=== PATIENT | female | born 1945 | race Caucasian/White ===

== ENCOUNTER 2016-09-26 10:52 | Emergency (ER) | payer MEDICARE, BC ==
[2016-09-26] MEDS ORDERED: SODIUM CHLORIDE 0.9% 1,000 ML IV STA (12:31)
--- NOTE | 2016-09-26 12:40 | ED ---
GI Bleed HPI - General Chief complaint: GI Bleed Stated complaint: blood in stool Time Seen by Provider: 09/26/16 12:25 Source: patient Mode of arrival: ambulatory Limitations: no limitations - History of Present Illness Initial comments: Patient is a 70-year-old female on aspirin presenting with bright red blood per rectum. Patient states symptoms started last night with blood in the bowl. Patient denies blood in the stool. Patient denies lightheadedness. Patient states she has similar symptoms about a year ago for which she was diagnosed with internal hemorrhoids. Patient never followed up on colonoscopy at that time. Patient states this morning she had a bowel movement and wiped without blood. Patient states her bowel movements are usually every day to every other day. Patient uses a hemorrhoid suppository. Denies fever, chills, chest pain, shortness breath, nausea, vomiting, diarrhea, abdominal pain. - Related Data Home Medications Medication Instructions Recorded Confirmed Aspirin 81 mg PO DAILY 12/22/15 09/26/16 Cholecalciferol [Vitamin D3] 1,000 unit PO DAILY 12/22/15 09/26/16 Tolterodine Tartrate [Detrol LA] 4 mg PO DAILY 12/22/15 09/26/16 amLODIPine BESYLATE/BENAZEPRIL 1 cap PO DAILY 12/22/15 09/26/16 [Lotrel 5-20 mg Capsule] Atorvastatin (Unknown Dose) 1 tab PO HS 09/26/16 09/26/16 Ubidecarenone [Co Q-10] 200 mg PO DAILY 09/26/16 09/26/16 Vit C/E/Zn/Coppr/Lutein/Zeaxan 1 cap PO DAILY 09/26/16 09/26/16 [Preservision Areds 2 Softgel] Allergies Allergy/AdvReac Type Severity Reaction Status Date / Time Sulfa (Sulfonamide Allergy Unknown Verified 12/22/15 19:09 Antibiotics) Review of Systems ROS Statement: Those systems with pertinent positive or pertinent negative responses have been documented in the HPI. Constitutional: No fever and no chills. HENT: No congestion, no rhinorrhea and no sore throat. Eyes: No discharge and no redness. Respiratory: No cough and no shortness of breath. Cardiovascular: No chest pain and no palpitations. Gastrointestinal: No nausea, no vomiting, no abdominal pain and no diarrhea. + Rectal bleeding. Genitourinary: No dysuria and no hematuria. Musculoskeletal: No back pain and no arthralgias. Skin: No pallor and no rash. Neurological: No dizziness and No headaches. ROS Other: All systems not noted in ROS Statement are negative. Past Medical History Past Medical History: GERD/Reflux, Hypertension Additional Past Medical History / Comment(s): BLADDER PROBLEMS History of Any Multi-Drug Resistant Organisms: None Reported Past Surgical History: Cholecystectomy, Hysterectomy Past Psychological History: No Psychological Hx Reported Smoking Status: Never smoker Past Alcohol Use History: None Reported Past Drug Use History: None Reported General Exam - General Exam Comments Initial Comments: Constitutional: Patient appears well-developed and well-nourished. No distress. Head: Normocephalic and atraumatic. Eyes: Conjunctivae and EOM are normal. Right eye exhibits no discharge. Left eye exhibits no discharge. No scleral icterus. Neck: Normal range of motion. Neck supple. Cardiovascular: Tachycardic. No murmur heard. Pulmonary/Chest: Effort normal and breath sounds normal. No respiratory distress. No wheezes. Abdominal: Soft. No distension. There is no tenderness. There is no rebound and no guarding. Rectal exam completed with RN. No obvious bleeding. No melena. Palpable internal hemorrhoid. Musculoskeletal: Normal range of motion. No edema or tenderness. Neurological: Patient alert and oriented to person, place, and time. Skin: Skin is warm and dry. Not diaphoretic. Nursing notes and vitals reviewed. Limitations: no limitations Course Vital Signs 09/26/16 11:16 Temperature 97.5 F L Pulse Rate 108 H Respiratory 20 Rate Blood Pressure 161/70 O2 Sat by Pulse 99 Oximetry - Reevaluation(s) Reevaluation #1: 09/26/16 14:05 Patient updated on lab results. No further bleeding. Patient feels comfortable going home with outpatient GI follow-up. Medical Decision Making - Medical Decision Making Patient is a 70-year-old female with history of hemorrhoids presenting with blood in bowel movement. Hemoccult negative. Hemoglobin stable at 14.8. Patient without further bleeding. Prior to discharge, patient was resting comfortably in bed. Course of stay resolved and stable for outpatient follow- up. Denies pain. Discussed physical exam and diagnostic tests with patient. Questions answered and patient is agreeable to discharge with close follow up with Primary Care Physician. Instructed to return to Emergency Department if symptoms worsen. - Lab Data Result diagrams: 09/26/16 12:50 09/26/16 12:50 Lab Results 09/26/16 09/26/16 09/26/16 Range/Units 12:50 12:50 12:50 WBC 9.6 (3.8-10.6) k/uL RBC 4.99 (3.80-5.40) m/uL Hgb 14.8 (11.4-16.0) gm/dL Hct 45.6 (34.0-46.0) % MCV 91.5 (80.0-100.0) fL MCH 29.7 (25.0-35.0) pg MCHC 32.5 (31.0-37.0) g/dL RDW 13.1 (11.5-15.5) % Plt Count 167 (150-450) k/uL Neutrophils % 75 % Lymphocytes % 18 % Monocytes % 4 % Eosinophils % 1 % Basophils % 1 % Neutrophils # 7.2 (1.3-7.7) k/uL Lymphocytes # 1.7 (1.0-4.8) k/uL Monocytes # 0.4 (0-1.0) k/uL Eosinophils # 0.1 (0-0.7) k/uL Basophils # 0.1 (0-0.2) k/uL PT (9.0-12.0) sec INR (<1.1) APTT (22.0-30.0) sec Sodium 143 (137-145) mmol/L Potassium 4.4 (3.5-5.1) mmol/L Chloride 106 (98-107) mmol/L Carbon Dioxide 25 (22-30) mmol/L Anion Gap 12 mmol/L BUN 10 (7-17) mg/dL Creatinine 0.79 (0.52-1.04) mg/dL Est GFR (MDRD) Af Amer >60 (>60 ml/min/1.73 sqM) Est GFR (MDRD) Non-Af >60 (>60 ml/min/1.73 sqM) Glucose 109 H (74-99) mg/dL Calcium 9.7 (8.4-10.2) mg/dL Stool Occult Blood Negative (Negative) 09/26/16 Range/Units 12:50 WBC (3.8-10.6) k/uL RBC (3.80-5.40) m/uL Hgb (11.4-16.0) gm/dL Hct (34.0-46.0) % MCV (80.0-100.0) fL MCH (25.0-35.0) pg MCHC (31.0-37.0) g/dL RDW (11.5-15.5) % Plt Count (150-450) k/uL Neutrophils % % Lymphocytes % % Monocytes % % Eosinophils % % Basophils % % Neutrophils # (1.3-7.7) k/uL Lymphocytes # (1.0-4.8) k/uL Monocytes # (0-1.0) k/uL Eosinophils # (0-0.7) k/uL Basophils # (0-0.2) k/uL PT 10.2 (9.0-12.0) sec INR 1.0 (<1.1) APTT 24.2 (22.0-30.0) sec Sodium (137-145) mmol/L Potassium (3.5-5.1) mmol/L Chloride (98-107) mmol/L Carbon Dioxide (22-30) mmol/L Anion Gap mmol/L BUN (7-17) mg/dL Creatinine (0.52-1.04) mg/dL Est GFR (MDRD) Af Amer (>60 ml/min/1.73 sqM) Est GFR (MDRD) Non-Af (>60 ml/min/1.73 sqM) Glucose (74-99) mg/dL Calcium (8.4-10.2) mg/dL Stool Occult Blood (Negative) Disposition Clinical Impression: Hemorrhoids, History of rectal bleeding Disposition: HOME SELF-CARE Condition: Good Instructions: Rectal Bleeding (ED), Hemorrhoids (ED) Referrals: Adolfo Marshall MD [Primary Care Provider] - 1-2 days Merlin Alfredo MD [STAFF PHYSICIAN] - 1-2 days
[2016-09-26 13:13] LABS: Basophils # (A) 0.1 k/uL (0-0.2); Basophils % (A) 1 %; CH 29.8; CHCM 32.7; Eosinophils # (A) 0.1 k/uL (0-0.7); Eosinophils % (A) 1 %; HCT 45.6 % (34.0-46.0); HDW 2.45; HGB 14.8 gm/dL (11.4-16.0); Luc % (Auto) 2; Lymphocytes # (A) 1.7 k/uL (1.0-4.8); Lymphocytes % (A) 18 %; MCH 29.7 pg (25.0-35.0); MCHC 32.5 g/dL (31.0-37.0); MCV 91.5 fL (80.0-100.0); Mean Platelet Volume 9.2; Monocytes # (A) 0.4 k/uL (0-1.0); Monocytes % (A) 4 %; Neutrophils # (A) 7.2 k/uL (1.3-7.7); Neutrophils % (A) 75 %; RBC 4.99 m/uL (3.80-5.40); RDW 13.1 % (11.5-15.5); WBC 9.6 k/uL (3.8-10.6); WBC (Perox) 9.68
[2016-09-26 13:15] LABS: Anion Gap 12 mmol/L; Calcium 9.7 mg/dL (8.4-10.2); Carbon Dioxide 25 mmol/L (22-30); Chloride 106 mmol/L (98-107); Glucose 109 mg/dL (74-99); Non-African American GFR(MDRD) >60 (>60 ml/min/1.73 sqM); Sodium 143 mmol/L (137-145)
[2016-09-26 13:18] LABS: Blood Urea Nitrogen 10 mg/dL (7-17); Potassium 4.4 mmol/L (3.5-5.1)
[2016-09-26 13:23] LABS: Partial Thromboplastin Time 24.2 sec (22.0-30.0); Prothrombin Time 10.2 sec (9.0-12.0)
[2016-09-26 14:15] VITALS: BP 152/65; PULSE 88; RESP 18; TEMP 97.6
== END 2016-09-26 14:15 | disposition home or self-care (01) ==
LOC: EC 10:52
DX: K64.8 Other hemorrhoids (principal); R00.0 Tachycardia, unspecified; I10 Essential (primary) hypertension; Z90.49 Acquired absence of other specified parts of digestive tract; Z88.2 Allergy status to sulfonamides; Z79.82 Long term (current) use of aspirin; Z79.899 Other long term (current) drug therapy
CPT/HCPCS: 36415; 80048; 82272; 85025; 85610; 85730; 86850; 86900; 86901; 96360; 99284

== ENCOUNTER → 2017-09-11 | Outpatient (CLI) | payer MEDICARE, BC ==
--- NOTE | 2017-09-11 20:11 | US ---
EXAMINATION TYPE: US thyroid st tissue head/neck DATE OF EXAM: 09/11/2017 COMPARISON: 06/30/2016 CLINICAL HISTORY: 71-year-old female E04.1 THYROID NODULE. Follow up TECHNIQUE: Multiple sonographic images of the thyroid gland are obtained. FINDINGS: GLAND SIZE: Right Lobe: 4.2 x 0.9 x 1.5 cm Overall Parenchyma: heterogenous Left Lobe: 4.1 x 1.9 x 1.7 cm Overall Parenchyma: heterogeneous Isthmus Thickness: 0.4 cm NODULES RIGHT: # of nodules measured on right: 1 1. 0.2 cm nodule too small to characterize at the upper pole with well-defined margins; . This nodu le is wider than tall and shows no intranodular vascularity. Prior size: 0.2 cm LEFT: # of nodules measured on left: 2 1. 0.7 X 0.4 x 0.5 cm hypoechoic solid nodule at the upper pole with poorly defined margins; . Thi s nodule is wider than tall and shows intranodular vascularity. Prior size: 0.3 x 0.2 x 0.4 cm 2. 1.4 X 1.6 x 1.5 cm hypoechoic mixed, primarily solid nodule at the posterior midpole with well-de fined margins; . This nodule is wider than tall and shows intranodular vascularity. Prior size: 0.9 x 0.8 x 0.7 cm ISTHMUS: # of nodules measured in the isthmus: 0 Bilateral neck scanned, no evidence of lymphadenopathy. IMPRESSION: 2 nodules on the left, both of which have increased in size, the larger is mixed solid cystic, primar kenyetta solid now measuring 1.6 x 1.5 cm versus 9 x 8 mm, previously. FNA can be considered. While the second nodule in the upper pole has increased in size, it still remains subcentimeter (7 mm versus 4 mm, previously).
== END | disposition home or self-care (01) ==
LOC: RADUSWWP 15:31
PROVIDERS: ATTEND Otolaryngology
DX: E04.2 Nontoxic multinodular goiter (principal)
CPT/HCPCS: 76536

== ENCOUNTER → 2018-09-12 | Outpatient (CLI) | payer MEDICARE, BC ==
--- NOTE | 2018-09-13 09:11 | US ---
EXAMINATION TYPE: US thyroid st tissue head/neck DATE OF EXAM: 09/12/2018 COMPARISON: 09/11/2017 CLINICAL HISTORY: E04.1 Thyroid nodule. follow up exam GLAND SIZE: Right Lobe: 3.5 x 1.1 x 2.2 cm Overall Parenchyma: homogenous Left Lobe: 4.8 x 1.6 x 2.4 cm Overall Parenchyma: homogeneous Isthmus Thickness: 0.5 cm NODULES RIGHT: # of nodules measured on right: 0 LEFT: # of nodules measured on left: 1 1. 2.1 X 1.4 x 1.2 cm hypoechoic mixed nodule at the mid pole with well-defined margins. This nodu le is wider than tall and shows no intranodular vascularity. Prior size: 1.4 x 1.6 x 1.5 cm ISTHMUS: # of nodules measured in the isthmus: 0 Bilateral neck scanned, no evidence of lymphadenopathy. IMPRESSION: Interval enlargement of a partially cystic partially solid left thyroid nodule with peripheral vascul ar flow. Fine-needle aspiration should be considered at this time given the interval growth.
== END | disposition home or self-care (01) ==
LOC: RADUSWWP 16:00
PROVIDERS: ATTEND Otolaryngology
DX: E04.1 Nontoxic single thyroid nodule (principal)
CPT/HCPCS: 76536

== ENCOUNTER → 2019-04-15 | Outpatient (CLI) | payer MEDICARE, BC ==
--- NOTE | 2019-04-16 08:46 | US ---
EXAMINATION TYPE: US thyroid st tissue head/neck DATE OF EXAM: 04/15/2019 COMPARISON: Exams back to 07/30/2014 CLINICAL HISTORY: E04.1 thyroid nodule. GLAND SIZE: Right Lobe: 3.6 x 1.1 x 1.3 cm Overall Parenchyma: homogenous Left Lobe: 3.8 x 2.0 x 1.8 cm Overall Parenchyma: homogeneous Isthmus Thickness: 0.5 cm NODULES RIGHT: # of nodules measured on right: 0 LEFT: # of nodules measured on left: 1 1. 1.9 X 1.4 x 1.2 cm isoechoic solid nodule at the upper pole with well-defined margins. This nod ule is wider than tall and shows intranodular vascularity. Prior size: 2.1 x 1.4 x 1.2 cm on the exam of 09/12/2018. On the exam of 09/11/2017 this measured 1.4 x 1.6 x 1.5 cm. On the exam of 06/30/2016 this measured 0.7 x 0.6 x 0.9 cm and on the exam of 015 this measured 1.2 x 0.7 x 1.0 cm. Given differences in measurement technique there is still remai ns interval growth in comparison to multiple prior exams. ISTHMUS: # of nodules measured in the isthmus: 0 Bilateral neck scanned, no evidence of lymphadenopathy. IMPRESSION: Overall interval increase in size of the left thyroid nodule in comparison to exams dating back to . Fine-needle aspiration could again be considered if not previously performed.
== END | disposition home or self-care (01) ==
LOC: RADUSWWP 16:07
PROVIDERS: ATTEND Otolaryngology
DX: E04.1 Nontoxic single thyroid nodule (principal)
CPT/HCPCS: 76536

== ENCOUNTER → 2020-04-07 | Outpatient (CLI) | payer MEDICARE, BC | END | disposition home or self-care (01) | LOC: CPPFTMAIN 13:00 | PROVIDERS: ATTEND Family Medicine | DX: J98.8 Other specified respiratory disorders (principal) | CPT/HCPCS: 94060; 94726; 94729 ==

== ENCOUNTER → 2020-08-03 | Outpatient (CLI) | payer MEDICARE, BC ==
--- NOTE | 2020-08-03 13:00 | ECHOF ---
Referral Reason:R00.2 Palpitations; R06.00 Dyspnea on exertion MEASUREMENTS -------- HEIGHT: 162.6 cm WEIGHT: 65.3 kg BP: RVIDd: 3.9 cm (< 3.3) IVSd: 1.2 cm (0.6 - 1.1) LVIDd: 3.1 cm (3.9 - 5.3) LVPWd: 1.2 cm (0.6 - 1.1) IVSs: 1.5 cm LVIDs: 2.1 cm LVPWs: 1.5 cm LAESV Index (A-L): 26.83 ml/m Ao Diam: 2.7 cm (2.0 - 3.7) AV Cusp: 1.4 cm (1.5 - 2.6) MV EXCURSION: 12.685 mm (> 18.000) MV EF SLOPE: 95 mm/s (70 - 150) EPSS: 0.5 cm MV E Eliu: 0.94 m/s MV DecT: 114 ms MV A Eliu: 1.44 m/s MV E/A Ratio: 0.65 AV maxP.15 mmHg AV meanP.96 mmHg AR PHT: 364 ms RAP: 5.00 mmHg RVSP: 35.58 mmHg FINDINGS -------- Sinus rhythm. This was a technically adequate study. The left ventricular size is normal. There is mild concentric left ventricular hypertrophy. Overa ll left ventricular systolic function is normal with, an EF between 55 - 60 %. The diastolic fillin g pattern is normal for the age of the patient 9.93. The right ventricle is mild to moderately enlarged. Normal LA size by volume 22+/-6 ml/m2. The right atrial size is normal. Interatrial and interventricular septum intact. There is mild aortic valve sclerosis. There is mild aortic regurgitation. There is mild aortic st enosis present. Peak/mean gradient across the Aortic Valve is 31.15mmHg / 16.96mmHg. Mild mitral annular calcification present. There is trace to mild mitral regurgitation. The tricuspid valve appears structurally normal. Mild tricuspid regurgitation present. There is m ild pulmonary hypertension. The right ventricular systolic pressure, as measured by Doppler, is 35. 58mmHg. There is no pulmonic regurgitation present. The aortic root size is normal. Normal inferior vena cava with normal inspiratory collapse consistent with estimated right atrial pre ssure of 5 mmHg. There is no pericardial effusion. CONCLUSIONS -------- 1. There is mild concentric left ventricular hypertrophy. 2. Overall left ventricular systolic function is normal with, an EF between 55 - 60 %. 3. The right ventricle is mild to moderately enlarged. 4. Normal LA size by volume 22+/-6 ml/m2. 5. There is mild aortic regurgitation. 6. There is mild aortic stenosis present. 7. Peak/mean gradient across the Aortic Valve is 31.15mmHg / 16.96mmHg. 8. There is trace to mild mitral regurgitation. 9. Mild tricuspid regurgitation present. 10. There is mild pulmonary hypertension. REGIONAL GUIDE: Halima Wu RDCS
--- NOTE | 2020-08-07 18:36 | HM ---
HOLTER MONITOR REPORT The patient was monitored for 48 hours. CLINICAL INFORMATION: Baseline rhythm is sinus mechanism with normal conduction, the average rate 85 beats per minute, minimum 58, maximum 144 beats per minute. Ventricular ectopic activity was not present. Supraventricular ectopic activity was present in the form of occasional single PACs. No atrial fibrillation was noted. No diary was available. CONCLUSION: 1. Sinus mechanism baseline rhythm. 2. No ventricular ectopic activity. 3. Occasional supraventricular ectopic activity. 4. No diary was available. MMODL / IJN: [id number] /
== END | disposition home or self-care (01) ==
LOC: RADECHMAIN 11:41
PROVIDERS: ATTEND Family Medicine
DX: I08.2 Rheumatic disorders of both aortic and tricuspid valves (principal); R00.2 Palpitations; I27.20 Pulmonary hypertension, unspecified; I10 Essential (primary) hypertension; E78.2 Mixed hyperlipidemia
CPT/HCPCS: 93225; 93226; 93306

== ENCOUNTER → 2020-10-07 | Outpatient (CLI) | payer MEDICARE, BC ==
[2020-10-07 14:50] LABS: Basophils # (A) 0.06 X 10*3/uL (0.00-0.10); Basophils % (A) 0.6 %; Eosinophils # (A) 0.08 X 10*3/uL (0.04-0.35); Eosinophils % (A) 0.7 %; HCT 44.9 % (37.2-46.3); HGB 13.9 g/dL (12.0-15.0); Lymphocytes # (A) 2.59 X 10*3/uL (0.90-5.00); Lymphocytes % (A) 24.1 %; MCH 29.1 pg (27.0-32.0); MCV 93.9 fL (80.0-97.0); Mean Platelet Volume 12.8 fL (9.5-12.2); Monocytes # (A) 0.84 X 10*3/uL (0.20-1.00); Monocytes % (A) 7.8 %; Neutrophils # (A) 7.16 X 10*3/uL (1.80-7.70); Neutrophils % (A) 66.6 %; Platelet Count 197 X 10*3/uL (140-440); RBC 4.78 X 10*6/uL (4.10-5.20); RDW 13.2 % (11.5-14.5); WBC 10.75 X 10*3/uL (4.50-10.00)
[2020-10-07 16:53] LABS: African American GFR (CKD) 64.3 (60.0-200.0); Albumin 4.6 g/dL (3.80-4.90); Anion Gap 7.6 mmol/L (4.00-12.00); Calcium 10.1 mg/dL (8.7-10.3); Carbon Dioxide 28.4 mmol/L (21.6-31.8); Chol/HDL Ratio 3.27; LDL Cholesterol,Calculated 85.4 mg/dL (0.0-131.0); Non-African American GFR(CKD) 55.5 (60.0-200.0); Potassium 4.9 mmol/L (3.5-5.5); Total Protein 6.6 g/dL (6.2-8.2); VLDL Calculation 23.6 mg/dL (5.00-40.00)
[2020-10-07 16:54] LABS: Albumin/Globulin Ratio 2.3 (1.60-3.17); Total Bilirubin 0.4 mg/dL (0.2-1.2)
== END | disposition home or self-care (01) ==
LOC: LABWHC1 08:45
PROVIDERS: ATTEND Family Medicine
DX: Z13.31 Encounter for screening for depression (principal); I10 Essential (primary) hypertension; E78.2 Mixed hyperlipidemia; E55.9 Vitamin D deficiency, unspecified; N32.81 Overactive bladder; F17.200 Nicotine dependence, unspecified, uncomplicated; I65.29 Occlusion and stenosis of unspecified carotid artery; K21.9 Gastro-esophageal reflux disease without esophagitis; E04.2 Nontoxic multinodular goiter; R00.2 Palpitations; Z68.24 Body mass index [BMI] 24.0-24.9, adult
CPT/HCPCS: 36415; 80053; 80061; 82306; 84443; 85025

== ENCOUNTER 2020-10-25 11:35 | Emergency (ER) | payer MEDICARE, BC ==
[2020-10-25 11:41] VITALS: RESP 18
[2020-10-25] MEDS ORDERED: SODIUM CHLORIDE 0.9% 1,000 ML IV STA (12:13)
[2020-10-25] MEDS ORDERED: ONDANSETRON 4 MG/2 ML VIAL IVP STA (12:13)
--- NOTE | 2020-10-25 12:24 | ED ---
Nausea/Vomiting/Diarrhea HPI - General Chief complaint: Nausea/Vomiting/Diarrhea Stated complaint: Vomiting/fever/weakness Time Seen by Provider: 10/25/20 11:52 Source: patient Mode of arrival: wheelchair Limitations: no limitations - History of Present Illness Initial comments: Patient is a 74-year-old female with history of hypertension, presenting to the emergency Department with complaints of nausea, vomiting, low-grade temperatures for the past few days. Patient states she got her [employer] Covid vaccine on 10/15/2020. Patient states she was doing well. Last week she came in contact with a friend of hers that tested positive for Covid. Patient states she started having these symptoms about 3 days ago. She is also complaining of body aches, unable to hold much fluid or food down. She states she feels really dehydrated. She denies any chest pain, no shortness of breath, no coughing. She admits to some mild abdominal cramping but no areas of pain. She does admit to some diarrhea today. She has no further complaints at this time. Upon arrival to the ER, her vital signs are normal. - Related Data Home Medications Medication Instructions Recorded Confirmed Aspirin 81 mg PO DAILY 12/22/15 09/26/16 Cholecalciferol [Vitamin D3] 1,000 unit PO DAILY 12/22/15 09/26/16 Tolterodine Tartrate [Detrol LA] 4 mg PO DAILY 12/22/15 09/26/16 amLODIPine BESYLATE/BENAZEPRIL 1 cap PO DAILY 12/22/15 09/26/16 [Lotrel 5-20 mg Capsule] Atorvastatin (Unknown Dose) 1 tab PO HS 09/26/16 09/26/16 Ubidecarenone [Co Q-10] 200 mg PO DAILY 09/26/16 09/26/16 Vit C/E/Zn/Coppr/Lutein/Zeaxan 1 cap PO DAILY 09/26/16 09/26/16 [Preservision Areds 2 Softgel] Previous Rx's Medication Instructions Recorded Ondansetron Odt [Zofran Odt] 4 mg PO Q8HR PRN #10 tab 10/25/20 Allergies Allergy/AdvReac Type Severity Reaction Status Date / Time Sulfa (Sulfonamide Allergy Unknown Verified 10/25/20 11:41 Antibiotics) Review of Systems ROS Statement: Those systems with pertinent positive or pertinent negative responses have been documented in the HPI. ROS Other: All systems not noted in ROS Statement are negative. Past Medical History Past Medical History: GERD/Reflux, Hypertension Additional Past Medical History / Comment(s): BLADDER PROBLEMS History of Any Multi-Drug Resistant Organisms: None Reported Past Surgical History: Cholecystectomy, Hysterectomy Past Psychological History: No Psychological Hx Reported Smoking Status: Current every day smoker Past Alcohol Use History: None Reported Past Drug Use History: None Reported General Exam - General Exam Comments Initial Comments: GENERAL: Patient is well-developed and well-nourished. Patient is nontoxic and in no acute distress. HEAD: Atraumatic, normocephalic. EYES: Pupils equal round and reactive to light, extraocular movements intact, sclera anicteric, conjunctiva are normal. Eyelids were unremarkable. ENT: TMs normal, nares patent, oropharynx clear without exudates. Dry mucous membranes. NECK: Normal range of motion, supple without lymphadenopathy or JVD. LUNGS: Unlabored respirations. Breath sounds clear to auscultation bilaterally and equal. No wheezes rales or rhonchi. HEART: Regular rate and rhythm without murmurs, rubs or gallops. ABDOMEN: Soft, nontender, normoactive bowel sounds. No guarding, no rebound. No masses appreciated. : Deferred MUSCULOSKELETAL: Normal extremities with adequate strength and normal range of motion, no pitting or edema. No clubbing or cyanosis. NEUROLOGICAL: Patient is alert and oriented x 3. Motor and sensory are also intact. Cranial nerves II through XII grossly intact. Symmetrical smile. Normal speech, normal gait. PSYCH: Normal mood, normal affect. SKIN: Warm, Dry, normal turgor, no rashes or lesions noted. Limitations: no limitations Course Vital Signs 10/25/20 11:37 Temperature 98.9 F Pulse Rate 97 Respiratory 18 Rate Blood Pressure 133/77 O2 Sat by Pulse 99 Oximetry Medical Decision Making - Medical Decision Making Patient is a 74-year-old female with history of hypertension presenting with low-grade fever, nausea and vomiting as well as body aches over the past 3 days. She did receive her [employer] Covid vaccine on the eighth. She did come in contact with a positive Covid friend last week. Her vital signs are stable here, her exam is unremarkable other than looking a bit dehydrated. Patient's labs are unremarkable, rapid Covid is positive. Patient does meet criteria for BAM infusion. She did receive this infusion, no adverse side effects. Patient will be stable for discharge. I will send her home with some Zofran for any additional nausea or vomiting. She can follow up with her PCP. She is in agreement with this plan of care and is stable for discharge. Case discussed with Dr. Schaefer. - Lab Data Result diagrams: 10/25/20 12:22 10/25/20 12:22 Lab Results 10/25/20 10/25/20 10/25/20 Range/Units 12:01 12:22 12:22 WBC 4.7 (3.8-10.6) k/uL RBC 4.95 (3.80-5.40) m/uL Hgb 14.3 (11.4-16.0) gm/dL Hct 43.9 (34.0-46.0) % MCV 88.7 (80.0-100.0) fL MCH 28.9 (25.0-35.0) pg MCHC 32.6 (31.0-37.0) g/dL RDW 13.3 (11.5-15.5) % Plt Count 136 L (150-450) k/uL MPV 8.8 Neutrophils % 68 % Lymphocytes % 19 % Monocytes % 8 % Eosinophils % 2 % Basophils % 0 % Neutrophils # 3.2 (1.3-7.7) k/uL Lymphocytes # 0.9 L (1.0-4.8) k/uL Monocytes # 0.4 (0-1.0) k/uL Eosinophils # 0.1 (0-0.7) k/uL Basophils # 0.0 (0-0.2) k/uL Sodium 132 L (137-145) mmol/L Potassium 3.8 (3.5-5.1) mmol/L Chloride 98 (98-107) mmol/L Carbon Dioxide 26 (22-30) mmol/L Anion Gap 8 mmol/L BUN 13 (7-17) mg/dL Creatinine 0.67 (0.52-1.04) mg/dL Est GFR (CKD-EPI)AfAm >90 (>60 ml/min/1.73 sqM) Est GFR (CKD-EPI)NonAf 87 (>60 ml/min/1.73 sqM) Glucose 115 H (74-99) mg/dL Calcium 8.9 (8.4-10.2) mg/dL Total Bilirubin 0.3 (0.2-1.3) mg/dL AST 31 (14-36) U/L ALT 15 (4-34) U/L Alkaline Phosphatase 77 (38-126) U/L Total Protein 6.6 (6.3-8.2) g/dL Albumin 3.9 (3.5-5.0) g/dL Urine Color Urine Appearance (Clear) Urine pH (5.0-8.0) Ur Specific [place] (1.001-1.035) Urine Protein (Negative) Urine Glucose (UA) (Negative) Urine Ketones (Negative) Urine Blood (Negative) Urine Nitrite (Negative) Urine Bilirubin (Negative) Urine Urobilinogen (<2.0) mg/dL Ur Leukocyte Esterase (Negative) Coronavirus (PCR) Detected A (Not Detectd) 10/25/20 Range/Units 13:02 WBC (3.8-10.6) k/uL RBC (3.80-5.40) m/uL Hgb (11.4-16.0) gm/dL Hct (34.0-46.0) % MCV (80.0-100.0) fL MCH (25.0-35.0) pg MCHC (31.0-37.0) g/dL RDW (11.5-15.5) % Plt Count (150-450) k/uL MPV Neutrophils % % Lymphocytes % % Monocytes % % Eosinophils % % Basophils % % Neutrophils # (1.3-7.7) k/uL Lymphocytes # (1.0-4.8) k/uL Monocytes # (0-1.0) k/uL Eosinophils # (0-0.7) k/uL Basophils # (0-0.2) k/uL Sodium (137-145) mmol/L Potassium (3.5-5.1) mmol/L Chloride (98-107) mmol/L Carbon Dioxide (22-30) mmol/L Anion Gap mmol/L BUN (7-17) mg/dL Creatinine (0.52-1.04) mg/dL Est GFR (CKD-EPI)AfAm (>60 ml/min/1.73 sqM) Est GFR (CKD-EPI)NonAf (>60 ml/min/1.73 sqM) Glucose (74-99) mg/dL Calcium (8.4-10.2) mg/dL Total Bilirubin (0.2-1.3) mg/dL AST (14-36) U/L ALT (4-34) U/L Alkaline Phosphatase (38-126) U/L Total Protein (6.3-8.2) g/dL Albumin (3.5-5.0) g/dL Urine Color Light Yellow Urine Appearance Clear (Clear) Urine pH 5.5 (5.0-8.0) Ur Specific [place] 1.007 (1.001-1.035) Urine Protein Negative (Negative) Urine Glucose (UA) Negative (Negative) Urine Ketones Negative (Negative) Urine Blood Negative (Negative) Urine Nitrite Negative (Negative) Urine Bilirubin Negative (Negative) Urine Urobilinogen <2.0 (<2.0) mg/dL Ur Leukocyte Esterase Negative (Negative) Coronavirus (PCR) (Not Detectd) Disposition Clinical Impression: Dehydration, Nausea & vomiting, COVID-19 Disposition: HOME SELF-CARE Condition: Stable Instructions (If sedation given, give patient instructions): Coronavirus Disease 2019 (COVID-19) Additional Instructions: Please return to the Emergency Department if symptoms worsen or any other concerns. May take Zofran for additional nausea or vomiting. Continue increase your fluid intake. Follow-up with your primary care physician. Prescriptions: Ondansetron Odt [Zofran Odt] 4 mg PO Q8HR PRN #10 tab PRN Reason: Nausea Is patient prescribed a controlled substance at d/c from ED?: No Referrals: Nonstaff,Physician [Primary Care Provider] - 1-2 days
[2020-10-25 12:30] LABS: Basophils % (A) 0 %; Eosinophils # (A) 0.1 k/uL (0-0.7); Eosinophils % (A) 2 %; HCT 43.9 % (34.0-46.0); HGB 14.3 gm/dL (11.4-16.0); Lymphocytes # (A) 0.9 k/uL (1.0-4.8); Lymphocytes % (A) 19 %; MCH 28.9 pg (25.0-35.0); MCHC 32.6 g/dL (31.0-37.0); MCV 88.7 fL (80.0-100.0); Mean Platelet Volume 8.8; Monocytes # (A) 0.4 k/uL (0-1.0); Monocytes % (A) 8 %; Neutrophils # (A) 3.2 k/uL (1.3-7.7); Neutrophils % (A) 68 %; Platelet Count 136 k/uL (150-450); RBC 4.95 m/uL (3.80-5.40); RDW 13.3 % (11.5-15.5); WBC 4.7 k/uL (3.8-10.6)
[2020-10-25 12:38] LABS: ALT 15 U/L (4-34); AST 31 U/L (14-36); African American GFR (CKD) >90 (>60 ml/min/1.73 sqM); Albumin 3.9 g/dL (3.5-5.0); Alkaline Phosphatase 77 U/L (38-126); Anion Gap 8 mmol/L; Blood Urea Nitrogen 13 mg/dL (7-17); Calcium 8.9 mg/dL (8.4-10.2); Carbon Dioxide 26 mmol/L (22-30); Chloride 98 mmol/L (98-107); Glucose 115 mg/dL (74-99); Non-African American GFR(CKD) 87 (>60 ml/min/1.73 sqM); Potassium 3.8 mmol/L (3.5-5.1); Sodium 132 mmol/L (137-145); Total Bilirubin 0.3 mg/dL (0.2-1.3); Total Protein 6.6 g/dL (6.3-8.2)
[2020-10-25] MEDS ORDERED: BAMLANIVIMAB (EUA) 700 MG, ETESEVIMAB (EUA) 1,400 MG in SODIUM CHLORIDE 0.9% 50 ML IVPB ONE (13:00)
[2020-10-25] MEDS ORDERED: SODIUM CHLORIDE 0.9% 50 ML IVPB ONE (13:00)
[2020-10-25 13:51] LABS: Appearance,Urine Clear (Clear); Bilirubin,Urine Negative (Negative); Blood,Urine Negative (Negative); Color,Urine Light Yellow; Glucose,Urine (UA) Negative (Negative); Ketones,Urine Negative (Negative); Leukocyte Esterase,Urine Negative (Negative); Nitrite,Urine Negative (Negative); PH, Urine 5.5 (5.0-8.0); Protein,Urine Negative (Negative); Specific Gravity,Urine 1.007 (1.001-1.035); Urobilinogen,Urine <2.0 mg/dL (<2.0)
[2020-10-25 14:51] VITALS: BP 136/78; PULSE 90; TEMP 98
== END 2020-10-25 14:51 | disposition home or self-care (01) ==
LOC: EC 11:35
DX: U07.1 COVID-19 (principal); K21.9 Gastro-esophageal reflux disease without esophagitis; I10 Essential (primary) hypertension; F17.200 Nicotine dependence, unspecified, uncomplicated; Z90.49 Acquired absence of other specified parts of digestive tract; Z90.710 Acquired absence of both cervix and uterus
CPT/HCPCS: 36415; 80053; 85025; 81003; 87635; 99284; 96365; 96375; J2405; Q0245

== ENCOUNTER → 2021-03-23 | Outpatient (CLI) | payer MEDICARE, BC ==
--- NOTE | 2021-03-23 19:47 | US ---
EXAMINATION TYPE: US thyroid st tissue head/neck DATE OF EXAM: 03/23/2021 COMPARISON: 04/15/2019 CLINICAL HISTORY: 75-year-old female E04.1 Thyroid Nodule. Follow up exam GLAND SIZE: Right Lobe: 3.2 x 1.0 x 1.9 cm Overall Parenchyma: homogenous Left Lobe: 4.1 x 1.8 x 2.5 cm Overall Parenchyma: heterogeneous Isthmus Thickness: 0.6 cm NODULES RIGHT: # of nodules measured on right: 0 LEFT: # of nodules measured on left: 2 1. 1.3 X 1.3 x 1.0 cm, mid, benign cyst at the midpole. Prior size: 1.9 x 1.4 x 1.2 cm 2. 0.7 X 0.5 x 0.9 cm, mid mid, solid or almost completely solid, hypoechoic TR 4 nodule, which is wider than tall, with smooth margins, without echogenic foci. Prior size: Without clearly seen previously. ISTHMUS: # of nodules measured in the isthmus: 0 Bilateral neck scanned, no evidence of lymphadenopathy. IMPRESSION: A benign 1.3 cm cyst within the left lobe has decreased in size. A 9 mm solid TR4 nodule also in the left lobe may be new. This can be reassessed at follow-up.
== END | disposition home or self-care (01) ==
LOC: RADUSWWP 14:38
PROVIDERS: ATTEND Otolaryngology
DX: E04.2 Nontoxic multinodular goiter (principal)
CPT/HCPCS: 76536

== ENCOUNTER → 2021-04-12 | Outpatient (CLI) | payer MEDICARE, BC ==
[2021-04-12 15:52] LABS: Basophils # (A) 0.06 X 10*3/uL (0.00-0.10); Basophils % (A) 0.6 %; Eosinophils # (A) 0.08 X 10*3/uL (0.04-0.35); Eosinophils % (A) 0.7 %; HCT 44.5 % (37.2-46.3); HGB 13.8 g/dL (12.0-15.0); Lymphocytes % (A) 20.5 %; MCH 29.3 pg (27.0-32.0); MCV 94.5 fL (80.0-97.0); Mean Platelet Volume 12.3 fL (9.5-12.2); Monocytes % (A) 6.5 %; Neutrophils # (A) 7.68 X 10*3/uL (1.80-7.70); Neutrophils % (A) 71.4 %; Platelet Count 204 X 10*3/uL (140-440); RBC 4.71 X 10*6/uL (4.10-5.20); RDW 13.7 % (11.5-14.5); WBC 10.75 X 10*3/uL (4.50-10.00)
[2021-04-12 15:58] LABS: African American GFR (CKD) 102.4 (60.0-200.0); Albumin 4.4 g/dL (3.8-4.9); Albumin/Globulin Ratio 1.89 (1.60-3.17); Anion Gap 12.3 mmol/L (4.00-12.00); BUN/Creat Ratio 21.88 Ratio (12.00-20.00); Blood Urea Nitrogen 13.5 mg/dL (9.0-27.0); Calcium 9.8 mg/dL (8.7-10.3); Carbon Dioxide 25.4 mmol/L (21.6-31.8); Chol/HDL Ratio 2.87 Ratio; Globulin 2.3 g/dL (1.6-3.3); HDL Cholesterol 51.2 mg/dL (40.00-60.00); LDL Cholesterol,Calculated 72.2 mg/dL (0.0-131.0); Magnesium 2.1 mg/dL (1.5-2.4); Non-African American GFR(CKD) 88.4 (60.0-200.0); Potassium 4.5 mmol/L (3.5-5.5); Total Bilirubin 0.3 mg/dL (0.30-1.20); Total Protein 6.7 g/dL (6.2-8.2); VLDL Calculation 23.6 mg/dL (5.00-40.00)
== END | disposition home or self-care (01) ==
LOC: LABWHC1 09:04
PROVIDERS: ATTEND Family Medicine
DX: I10 Essential (primary) hypertension (principal)
CPT/HCPCS: 36415; 80053; 80061; 82306; 83036; 83735; 84443; 85025

== ENCOUNTER → 2021-12-15 | Outpatient (CLI) | payer MEDICARE, BC ==
--- NOTE | 2021-12-16 11:50 | US ---
EXAMINATION TYPE: US thyroid st tissue head/neck DATE OF EXAM: 12/15/2021 COMPARISON: 03/23/2021 CLINICAL HISTORY: E04.1 SINGLE THYROID NODULE. GLAND SIZE: Right Lobe: 3.9 x 1.6 x 1.3 cm Overall Parenchyma: homogenous Left Lobe: 4.8 x 1.7 x 1.6 cm Overall Parenchyma: homogeneous Isthmus Thickness: 0.5 cm NODULES RIGHT: # of nodules measured on right: 0 LEFT: # of nodules measured on left: 1. 1.1 X 0.9 x 0.8 cm, mid, cystic or almost completely cystic, anechoic nodule, which is wider avelino n tall, with smooth margins, without echogenic foci. Prior size:1.3 X 1.3 x 1.0 cm 2. 0.4 X 0.4 x 0.8 cm, mid, cystic or almost completely cystic, anechoic nodule, which is wider th an tall, with smooth margins, without echogenic foci. Prior size: 0.7 X 0.5 x 0.9 ISTHMUS: # of nodules measured in the isthmus: Bilateral neck scanned, no evidence of lymphadenopathy. IMPRESSION: 1. Cystlike lesions within the left lobe thyroid. 2017 ACR TI-RADS LEVEL: TR-RADS 1 - BENIGN: No FNA *Highest TI-RADS level nodule reported
== END | disposition home or self-care (01) ==
LOC: RADUSWWP 16:53
PROVIDERS: ATTEND Otolaryngology
DX: E07.89 Other specified disorders of thyroid (principal)
CPT/HCPCS: 76536

== ENCOUNTER → 2022-12-16 | Outpatient (CLI) | payer MEDICARE, BC ==
--- NOTE | 2022-12-16 16:01 | US ---
EXAMINATION TYPE: US thyroid st tissue head/neck DATE OF EXAM: 12/16/2022 COMPARISON: 12/15/2021 CLINICAL INDICATION: Female, 77 years old with history of E04.1 NONTOXIC SINGLE THYROID NODULE; follo w up GLAND SIZE: Right Lobe: 4.31.5x1.6 cm Overall Parenchyma: homogenous Left Lobe: 4.2x1.6x1.4 cm Overall Parenchyma: homogeneous Isthmus Thickness: 0.4 cm NODULES RIGHT: # of nodules measured on right: 1 1. 0.5 X 0.3 x 0.3 cm, upper lateral, TIRADS Score: 2 TIRADS Category 2: Not Suspicious Composition: Mixed cystic and solid (1 point). Echogenicity: Hyperechoic or isoechoic (1 point). Shape: Wider than tall (0 points). Margin: Smooth (0 points). Echogenic foci: None or large comet-tail artifacts (0 points) Recommendation: No FNA LEFT: # of nodules measured on left: 3 1. 1.0 X 0.9 x 1.0 cm, upper mid, TIRADS Score: 3 TIRADS Category 3: Mildly Suspicious Composition: Solid or almost completely solid (2 points). Echogenicity: Hyperechoic or isoechoic (1 point). Shape: Wider than tall (0 points). Margin: Smooth (0 points). Echogenic foci: None or large comet-tail artifacts (0 points) Recommendation: If >2.5cm: FNA; If >1.5cm: Follow up at 1,3,5 years 2. 0.7 X 0.7 x 0.7 cm, mid lateral, TIRADS Score: 2 TIRADS Category 2: Not Suspicious Composition: Mixed cystic and solid (1 point). Echogenicity: Hyperechoic or isoechoic (1 point). Shape: Wider than tall (0 points). Margin: Smooth (0 points). Echogenic foci: None or large comet-tail artifacts (0 points) Recommendation: No FNA 3. 0.5 X 0.3 x 0.4 cm, lower mid, TIRADS Score: 2 TIRADS Category 2: Not Suspicious Composition: Mixed cystic and solid (1 point). Echogenicity: Hyperechoic or isoechoic (1 point). Shape: Wider than tall (0 points). Margin: Smooth (0 points). Echogenic foci: None or large comet-tail artifacts (0 points) Recommendation: No FNA ISTHMUS: # of nodules measured in the isthmus: 0 Bilateral neck scanned, no evidence of lymphadenopathy. IMPRESSION: Bilateral thyroid nodules with recommendations as described above. Nodules do not have suspicious fea tures. Consider follow-up imaging with ultrasound in one year.
== END | disposition home or self-care (01) ==
LOC: RADUSWWP 13:35
PROVIDERS: ATTEND Otolaryngology
DX: E04.2 Nontoxic multinodular goiter (principal)
CPT/HCPCS: 76536

== ENCOUNTER → 2023-10-17 | Outpatient (CLI) | payer MEDICARE, BC ==
[2023-10-17 11:27] LABS: African American GFR (CKD) 66 (>60 ml/min/1.73 sqM); Blood Urea Nitrogen 16 mg/dL (7-17); Non-African American GFR(CKD) 57 (>60 ml/min/1.73 sqM)
--- NOTE | 2023-10-17 12:29 | CT ---
EXAMINATION TYPE: CT angio neck DATE OF EXAM: 10/17/2023 HISTORY: carotid stenosis COMPARISON: 05/31/2013 CT DLP: 256.0 mGycm. Automated Exposure Control for Dose Reduction was Utilized. TECHNIQUE: CTA scan of the neck is performed with IV Contrast, patient injected with 65ml mL of Isov ue 370, axial images are obtained, coronal and sagittal reformatted images are reviewed. Three-D cassie nstructed images are created on an independent workstation and reviewed. Source images are reviewed. FINDINGS: Carotid/Vascular Structures: There is a 3 vessel arch. Stenosis at the origins of the great vessels m ay be present. Atheromatous plaquing and calcifications at the right carotid bifurcation contributing to a severe 77 % narrowing. This is increasing from comparison. Plaquing is present at the left internal carotid art camden origin contributing to a moderate 61% narrowing. This appears stable. Vertebral arteries are codominant. Internal carotid arteries and vertebral arteries are patent to the skull base. IMPRESSION: 1. Severe flow-limiting stenosis of approximately 77% right internal carotid artery origin. 2. Moderate narrowing of 61% left internal carotid artery origin. 3. There may be narrowing due to plaquing at the origins of the great vessels. NASCET criteria was used in interpretation of this exam?
== END | disposition home or self-care (01) ==
LOC: RADCTMAIN 10:25
PROVIDERS: ATTEND Surgery
DX: I65.23 Occlusion and stenosis of bilateral carotid arteries (principal)
CPT/HCPCS: 82565; 84520; 70498; 36415; Q9967

== ENCOUNTER → 2023-12-28 | Outpatient (CLI) | payer MEDICARE, BC ==
--- NOTE | 2023-12-28 19:41 | US ---
EXAMINATION TYPE: US thyroid st tissue head/neck DATE OF EXAM: 12/28/2023 COMPARISON: 12/16/2022 CLINICAL INDICATION: Female, 78 years old with history of E04.2 NONTOXIC MULTINODULAR GOITER; GLAND SIZE: Right Lobe: 4.8 x 2.1 x 1.6 cm Overall Parenchyma: homogeneous Left Lobe: 4.2 x 1.5 x 1.9 cm Overall Parenchyma: homogeneous Isthmus Thickness: 0.5 cm NODULES RIGHT: # of nodules measured on right: 0 Nodule not seen on this exam; Difficult visualization due to low lying thyroid LEFT: # of nodules measured on left: 1 1. 1.6 X 1.1 x 1.2 cm, lower lateral, solid or almost completely solid, isoechoic nodule, which is wider than tall, with smooth margins, without echogenic foci. Prior size: 1.0 x 1.0 x 1.0 cm Other subcentimeter nodules noted. ISTHMUS: # of nodules measured in the isthmus: 0 Bilateral neck scanned, hypoechoic rounded lymph node noted left lateral neck IMPRESSION: 1. Growing left thyroid nodule from 1 cm to 1.6 cm. TR3 continue routine screening. 2. No thyromegaly 2017 ACR TI-RADS LEVEL: 3 *Highest TI-RADS level nodule reported
== END | disposition home or self-care (01) ==
LOC: RADUSWWP 15:11
PROVIDERS: ATTEND Otolaryngology
DX: E04.2 Nontoxic multinodular goiter (principal)
CPT/HCPCS: 76536

== ENCOUNTER → 2024-04-05 | Outpatient (CLI) | payer MEDICARE, BC ==
[2024-04-05 13:29] LABS: African American GFR (CKD) 75 (>60 ml/min/1.73 sqM); Blood Urea Nitrogen 14 mg/dL (7-17); Non-African American GFR(CKD) 65 (>60 ml/min/1.73 sqM)
--- NOTE | 2024-04-05 14:54 | CT ---
EXAMINATION TYPE: CT abdomen pelvis w con DATE OF EXAM: 04/05/2024 COMPARISON: None HISTORY: Abnormal weight loss. CT DLP: 1062 mGycm Automated exposure control for dose reduction was used. TECHNIQUE: Helical acquisition of images was performed from the lung bases through the pelvis. CONTRAST: Performed with Oral Contrast and with IV Contrast, patient injected with 80ml mL of Isovue 300. FINDINGS: The lung bases are clear. There is surgical absence of gallbladder. There is mild intra- Biliary ductal dilatation likely secondary to the cholecystectomy. MRCP or ERCP could be useful to ex clude the possibility of a ampullary mass. There is no definite pancreatic mass. There is no splenomegaly. The adrenal glands are unremarkable. There is no solid renal mass or hydronephrosis. There is no retroperitoneal adenopathy or hemorrhage in the caliber of the abdominal organs normal. T he abdominal aorta is diffusely calcified. The bowel loops are normal in caliber and no evidence of dilatation or obstruction. No inflammatory c hanges identified in the mesentery. There is no free intraperitoneal air or fluid. No pelvic mass or adenopathy. There is surgical absence of the uterus. There are no focal destructive osseous lesions. There is fixation of a left hip fracture. IMPRESSION: 1. Cholecystectomy. 2. Mild intra and extra hepatic biliary ductal dilatation. MRCP or ERCP recommended to exclude and am pullary mass if clinically indicated. 3. No acute changes within the abdomen or pelvis. [facility], , 04/05/2024 2:52 PM
--- NOTE | 2024-04-05 15:02 | CT ---
EXAMINATION TYPE: CT chest wo con DATE OF EXAM: 04/05/2024 COMPARISON: None HISTORY: Productive cough. Smoker. CT DLP: 446 mGycm. Automated Exposure Control for Dose Reduction was Utilized. TECHNIQUE: CT scan of the thorax is performed without IV contrast. FINDINGS: There is a 11 mm nodule in the left lobe of the thyroid gland. Correlate with prior thyroid ultrasoun ds. Great vessels chest are normal. There is no mediastinal, hilar or axillary adenopathy.. There is a 8 mm groundglass density associated with the right minor fissure. There are a few scattere d micronodules. There is no suspicious lung mass or nodule. There is no airspace consolidation or abnormal interstitial density. There is no pleural effusion or pneumothorax. There is mild to moderate emphysematous changes in upper lobe predominance. Limited scanning of the upper abdomen reveals no gross abnormality. See the CT abdomen and pelvis of the same date. IMPRESSION: 1. Mild to moderate emphysematous change. 2. A few scattered sub-4 mm nodules and an 8 mm groundglass nodule associated with the minor fissure on the right. 3. No acute cardiopulmonary disease. [facility], , 04/05/2024 3:00 PM
== END | disposition home or self-care (01) ==
LOC: RADCTMAIN 12:41
PROVIDERS: ATTEND Family Medicine
DX: J43.9 Emphysema, unspecified (principal); K83.8 Other specified diseases of biliary tract; R91.8 Other nonspecific abnormal finding of lung field; R05.8 Other specified cough; R06.2 Wheezing; R63.4 Abnormal weight loss; F17.210 Nicotine dependence, cigarettes, uncomplicated; R10.84 Generalized abdominal pain; R10.13 Epigastric pain; Z90.49 Acquired absence of other specified parts of digestive tract
CPT/HCPCS: 36415; 71250; 74177; 82565; 84520

== ENCOUNTER 2025-01-09 17:55 | Emergency (ER) | payer MEDICARE, BC ==
[2025-01-09 18:08] VITALS: PULSE 92
--- NOTE | 2025-01-09 18:26 | XR ---
EXAMINATION TYPE: XR wrist complete LT DATE OF EXAM: 01/09/2025 6:22 PM INDICATION: Patient age:Female; 79 years old; Reason for study: left wrist injury; PHH. pain COMPARISON: None TECHNIQUE: 4 views of the left wrist. Frontal, navicular, lateral, and oblique. FINDINGS: Diffuse bone demineralization. No acute osseous pathology, joint dislocation, or joint effu caroline. No evidence of any soft tissue swelling is seen. No radiopaque foreign body. IMPRESSION: No acute osseous pathology. [facility], , 01/09/2025 6:24 PM
--- NOTE | 2025-01-09 19:24 | ED ---
Upper Extremity HPI - General Chief Complaint: Extremity Injury, Upper Stated Complaint: L Wrist Injury Time Seen by Provider: 01/09/25 18:12 Source: patient, RN notes reviewed Mode of arrival: ambulatory Limitations: no limitations - History of Present Illness MD Complaint: Injury to:: left, wrist - Related Data Home Medications Medication Instructions Recorded Confirmed Aspirin 81 mg PO DAILY 12/22/15 09/26/16 Cholecalciferol [Vitamin D3] 1,000 unit PO DAILY 12/22/15 09/26/16 Tolterodine Tartrate [Detrol LA] 4 mg PO DAILY 12/22/15 09/26/16 amLODIPine BESYLATE/BENAZEPRIL 1 cap PO DAILY 12/22/15 09/26/16 [Lotrel 5-20 mg Capsule] Atorvastatin (Unknown Dose) 1 tab PO HS 09/26/16 09/26/16 Ubidecarenone [Co Q-10] 200 mg PO DAILY 09/26/16 09/26/16 Vit C/E/Zn/Coppr/Lutein/Zeaxan 1 cap PO DAILY 09/26/16 09/26/16 [Preservision Areds 2 Softgel] Previous Rx's Medication Instructions Recorded Ondansetron Odt [Zofran Odt] 4 mg PO Q8HR PRN #10 tab 10/25/20 Allergies Allergy/AdvReac Type Severity Reaction Status Date / Time Sulfa (Sulfonamide Allergy Unknown Verified 10/25/20 11:41 Antibiotics) Review of Systems ROS Statement: Those systems with pertinent positive or pertinent negative responses have been documented in the HPI. ROS Other: All systems not noted in ROS Statement are negative. Past Medical History Past Medical History: GERD/Reflux, Hypertension Additional Past Medical History / Comment(s): BLADDER PROBLEMS History of Any Multi-Drug Resistant Organisms: None Reported Past Surgical History: Cholecystectomy, Hysterectomy Past Psychological History: No Psychological Hx Reported Smoking Status: Current every day smoker Past Alcohol Use History: None Reported Past Drug Use History: None Reported General Exam Limitations: no limitations General appearance: alert, in no apparent distress Head exam: Present: atraumatic, normocephalic, normal inspection Eye exam: Present: normal appearance, PERRL, EOMI. Absent: scleral icterus, conjunctival injection, periorbital swelling ENT exam: Present: normal exam, mucous membranes moist Neck exam: Present: normal inspection. Absent: tenderness, meningismus, lymphadenopathy Respiratory exam: Present: normal lung sounds bilaterally. Absent: respiratory distress, wheezes, rales, rhonchi, stridor Cardiovascular Exam: Present: regular rate, normal rhythm, normal heart sounds. Absent: systolic murmur, diastolic murmur, rubs, gallop, clicks GI/Abdominal exam: Present: soft, normal bowel sounds. Absent: distended, tenderness, guarding, rebound, rigid Extremities exam: Present: full ROM, tenderness (Positive left wrist radial head and carpal bone tenderness without obvious crepitus, deformity, open wound. Negative TTP at anatomical snuffbox), normal capillary refill, other (Distal LUE neurovascular motor function intact. Radial pulse +2, capillary refill less than 2 seconds). Absent: pedal edema, joint swelling, calf tenderness Back exam: Present: normal inspection Neurological exam: Present: alert, oriented X3, CN II-XII intact Psychiatric exam: Present: normal affect, normal mood Skin exam: Present: warm, dry, intact, normal color. Absent: rash Course Vital Signs 01/09/25 18:05 Temperature 97.9 F Pulse Rate 92 Respiratory 18 Rate Blood Pressure 170/67 O2 Sat by Pulse 98 Oximetry Medical Decision Making - Medical Decision Making Was pt. sent in by a medical professional or institution (, PA, OPERATOR ASSISTANT I CEMENTING, urgent care, hospital, or [facility]...) When possible be specific @ -[No] Did you speak to anyone other than the patient for history (EMS, parent, family, police, friend...)? What history was obtained from this source @ -[No] Did you review nursing and triage notes (agree or disagree)? Why? @ -[I reviewed and agree with nursing and triage notes] Were old charts reviewed (outside hosp., previous admission, EMS record, old EKG, old radiological studies, urgent care reports/EKG's, [facility] records)? Report findings @ -[No old charts were reviewed] Differential Diagnosis (chest pain, altered mental status, abdominal pain women, abdominal pain men, vaginal bleeding, weakness, fever, dyspnea, syncope, headache, dizziness, GI bleed, back pain, seizure, CVA, palpatations, mental health, musculoskeletal)? @ -Differential Musculoskeletal Muscular strain, contusion, ligament sprain, fracture, arthritis, septic arthritis, bursitis, cellulitis, muscle spasm, nerve compression, DVT, arterial occlusion, herpes zoster, electrolyte abnormality, tumor.... This is not meant to be in all inclusive list EKG interpreted by me (3pts min.). @ -Not done X-rays interpreted by me (1pt min.). @ -[None done] CT interpreted by me (1pt min.). @ -[None done] U/S interpreted by me (1pt. min.). @ -[None done] What testing was considered but not performed or refused? (CT, X-rays, U/S, labs)? Why? @ -[None] What meds were considered but not given or refused? Why? @ -[None] Did you discuss the management of the patient with other professionals (professionals i.e. , PA, OPERATOR ASSISTANT I CEMENTING, lab, RT, psych nurse, social media intern, buffer automatic, teacher, president and chief executive officer, hims manager)? Give summary @ -[No] Was smoking cessation discussed for >3mins.? @ -[No] Was critical care preformed (if so, how long)? @ -[No] Were there social determinants of health that impacted care today? How? (Homelessness, low income, unemployed, alcoholism, drug addiction, transportation, low edu. Level, literacy, decrease access to med. care, intermediate, rehab)? @ -[No] Was there de-escalation of care discussed even if they declined (Discuss DNR or withdrawal of care, Hospice)? DNR status @ -[No] What co-morbidities impacted this encounter? (DM, HTN, Smoking, COPD, CAD, Cancer, CVA, ARF, Chemo, Hep., AIDS, mental health diagnosis, sleep apnea, morbid obesity)? @ -[None] Was patient admitted / discharged? Hospital course, mention meds given and route, prescriptions, significant lab abnormalities, going to OR and other pertinent info. @ -[hospital course] Undiagnosed new problem with uncertain prognosis? @ -[No] Drug Therapy requiring intensive monitoring for toxicity (Heparin, Nitro, Insulin, Cardizem)? @ -[No] Were any procedures done? @ -Lobito wrap applied to left wrist Diagnosis/symptom? @ -Wrist sprain Acute, or Chronic, or Acute on Chronic? @ -Acute Uncomplicated (without systemic symptoms) or Complicated (systemic symptoms)? @ -Uncomplicated Side effects of treatment? @ -[No] Exacerbation, Progression, or Severe Exacerbation? @ -[No] Poses a threat to life or bodily function? How? (Chest pain, [place], [place], pneumonia, PE, COPD, DKA, ARF, appy, cholecystitis, CVA, Diverticulitis, Homicidal, Suicidal, threat to staff... and all critical care pts) @ -[No] Disposition Clinical Impression: Left wrist sprain Disposition: HOME SELF-CARE Condition: Good Instructions (If sedation given, give patient instructions): Wrist Sprain (ED) Additional Instructions: Rest, ice, compression, elevation. Tylenol every 4-6 hours as needed for pain. Follow-up with primary care/orthopedics for any ongoing pain. Is patient prescribed a controlled substance at d/c from ED?: No Referrals: Nonstaff,Physician [Primary Care Provider] - 1-2 days Lb Tijerina MD [STAFF PHYSICIAN] - 1-2 days Jose Rice MD [STAFF PHYSICIAN] - 1-2 days Time of Disposition: 19:24
[2025-01-09 20:44] VITALS: BP 168/87; RESP 20; TEMP 98.1
== END 2025-01-09 20:43 | disposition home or self-care (01) ==
LOC: EC 17:55
DX: S63.502A Unspecified sprain of left wrist, initial encounter (principal); F17.200 Nicotine dependence, unspecified, uncomplicated; Z88.2 Allergy status to sulfonamides; X58.XXXA Exposure to other specified factors, initial encounter
CPT/HCPCS: 99283